=== PATIENT | male | born 1945 | race Caucasian/White ===

== ENCOUNTER 2021-09-22 10:33 | Observation (INO) | payer MEDICARE, OTHER ==
[2021-09-22] MEDS ORDERED: Ondansetron ODT 4 MG TAB PO PRN (11:29)
[2021-09-22] MEDS ORDERED: Acetaminophen 325 MG TAB PO PRN (11:29)
[2021-09-22] MEDS ORDERED: Senokot S 8.6-50 MG TAB PO PRN (11:29)
[2021-09-22 11:39] VITALS: BMI 31.2
[2021-09-22] MEDS ORDERED: Acetaminophen 325 MG TAB PO SCH (11:45)
[2021-09-22] MEDS ORDERED: Nitroglycerin 2% Ointment 1 INCH/1 GM Packet TOP SCH ×2 (11:45→21:00)
[2021-09-22] MEDS ORDERED: Nitroglycerin 2% Ointment 1 INCH/1 GM Packet ONE (11:55)
[2021-09-22] MEDS ORDERED: Acetaminophen 500 MG TAB ONE (11:55)
[2021-09-22 12:00] LABS: #Eosinphils 0.1 10x3/uL (0.0-0.5); #Monocytes 0.7 10x3/uL (0.0-1.1); #Neutrophils 5.9 10x3/uL (1.5-8.4); %Basophils 0.5 % (0.0-2.0); %Eosinophils 1.7 % (0.0-6.0); %Lymphocytes 13.7 % (18.0-47.0); %Monocytes 9.2 % (0.0-10.0); %Neutrophils 74.6 % (40.0-75.0); Hemoglobin 14.3 g/dL (13.5-17.5); Mean Corpuscular Hemoglobin 32.2 pg (27.0-33.0); Mean Corpuscular Volume 94.8 fl (81.2-95.1); Mean Platelet Volume 11.3 fl (7.4-10.4); Platelet Count 136 10x3/uL (150-450); RBC Distribution Width 13.5 % (11.5-14.5); Red Blood Cell (RBC) Count 4.44 10x6/uL (4.32-5.72); White Blood Cell (WBC) Count 7.9 10x3/uL (3.5-10.5)
[2021-09-22 12:03] LABS: Anion Gap 10 mmol/L (10-20); BUN (Urea Nitrogen) 12 mg/dL (8.4-25.7); Calc. Creatinine Clearance 150 mL/min (70-130); Calcium 9.1 mg/dL (7.8-10.44); Carbon Dioxide 27 mmol/L (23-31); Chloride 107 mmol/L (98-107); Glucose 115 mg/dL (83-110); Magnesium 1.8 mg/dL (1.6-2.6); Potassium 4.4 mmol/L (3.5-5.1); Sodium 140 mmol/L (136-145)
[2021-09-22] MEDS ORDERED: hydrALAZINE 20 MG/ML VIAL SLOW IVP PRN (12:04)
[2021-09-22] MEDS ORDERED: Clopidogrel Bisulfate 75 MG TAB PO SCH (14:00)
[2021-09-22] MEDS ORDERED: Apixaban 5 MG TAB PO SCH (14:00)
[2021-09-22] MEDS ORDERED: Apixaban 5 MG TAB ONE (15:27)
[2021-09-22] MEDS ORDERED: Clopidogrel Bisulfate 75 MG TAB ONE (15:27)
[2021-09-22] MEDS ORDERED: Losartan Potassium 50 MG TAB PO SCH (18:15)
[2021-09-22] MEDS: Losartan Potassium 50 MG TAB PO SCH ×2 (18:31→20:12)
[2021-09-22] MEDS: Apixaban 5 MG TAB PO SCH (21:19)
[2021-09-23 04:07] LABS: #Basophils 0.1 10x3/uL (0.0-0.2); #Eosinphils 0.3 10x3/uL (0.0-0.5); #Monocytes 0.9 10x3/uL (0.0-1.1); #Neutrophils 4.6 10x3/uL (1.5-8.4); %Basophils 0.7 % (0.0-2.0); %Eosinophils 3.5 % (0.0-6.0); %Lymphocytes 23.3 % (18.0-47.0); %Monocytes 11.5 % (0.0-10.0); %Neutrophils 60.7 % (40.0-75.0); Hemoglobin 14.5 g/dL (13.5-17.5); Mean Corpuscular Hemoglobin 31.5 pg (27.0-33.0); Mean Corpuscular Volume 95.4 fl (81.2-95.1); Mean Platelet Volume 11.2 fl (7.4-10.4); Platelet Count 141 10x3/uL (150-450); RBC Distribution Width 13.5 % (11.5-14.5); White Blood Cell (WBC) Count 7.5 10x3/uL (3.5-10.5)
[2021-09-23 04:23] LABS: Anion Gap 11 mmol/L (10-20); BUN (Urea Nitrogen) 9 mg/dL (8.4-25.7); Calc. Creatinine Clearance 139 mL/min (70-130); Calcium 8.8 mg/dL (7.8-10.44); Carbon Dioxide 27 mmol/L (23-31); Cardiac Risk 2.4 (Less than 4.5); Chloride 106 mmol/L (98-107); Cholesterol 110 mg/dl (< 200 Desired); Glucose 99 mg/dL (83-110); HDL Cholesterol 46 mg/dL (>60 Neg Risk); LDL Cholesterol, Calculated 54 mg/dL; Sodium 140 mmol/L (136-145); Triglycerides 50 mg/dL (Less than 150)
[2021-09-23] MEDS: Apixaban 5 MG TAB PO SCH (08:33)
[2021-09-23] MEDS ORDERED: Losartan Potassium 50 MG TAB PO SCH (09:00)
[2021-09-23] MEDS ORDERED: Atorvastatin Calcium 40 MG TAB PO SCH (09:00)
[2021-09-23] MEDS ORDERED: Clopidogrel Bisulfate 75 MG TAB PO SCH (09:00)
[2021-09-23] MEDS ORDERED: Allopurinol 300 MG TAB PO SCH (09:00)
[2021-09-23] MEDS ORDERED: Amlodipine 5 MG TAB PO SCH (09:00)
[2021-09-23 18:16] VITALS: BP 158/88; TEMP 97.6
== END 2021-09-23 18:56 | disposition home or self-care (01) ==
LOC: UNDOADMOB 10:33 → CSHERHOLD 10:33 → INTOOBSV 10:33 → CSHERHOLD 11:34 → OBSVTOIN 11:34 → CSHTELE 15:59
PROVIDERS: ADMIT Family Medicine; ATTEND Nurse Practitioner Family
DX: I25.110 Atherosclerotic heart disease of native coronary artery with unstable angina pectoris (principal); I16.0 Hypertensive urgency; R00.1 Bradycardia, unspecified; M10.9 Gout, unspecified; Z87.442 Personal history of urinary calculi; Z79.01 Long term (current) use of anticoagulants; Z79.02 Long term (current) use of antithrombotics/antiplatelets; Z95.5 Presence of coronary angioplasty implant and graft; Z79.899 Other long term (current) drug therapy; I48.20 Chronic atrial fibrillation, unspecified; E78.2 Mixed hyperlipidemia
CPT/HCPCS: 80048 ×2; 80061; 83735; 85025 ×2; 93005; 96374; G0378 ×3; J3475; 36415; 93010

== ENCOUNTER 2024-05-27 16:09 | Emergency (ER) | payer MEDICARE, OTHER ==
[2024-05-27 17:22] LABS: #Basophils 0.03 10x3/uL (0.0-0.2); #Eosinphils 0.14 10x3/uL (0.0-0.5); #Monocytes 0.63 10x3/uL (0.0-1.1); %Basophils 0.6 % (0.0-2.0); %Eosinophils 2.6 % (0.0-6.0); %Lymphocytes 21.7 % (18.0-47.0); %Monocytes 11.7 % (0.0-10.0); Hematocrit 39.3 % (38.8-50.0); Hemoglobin 13.6 g/dL (13.5-17.5); Mean Corpuscular HGB CONC 34.6 g/dL (32.0-36.0); Mean Corpuscular Hemoglobin 33.3 pg (27.0-33.0); Mean Corpuscular Volume 96.3 fL (81.2-95.1); Mean Platelet Volume 10.9 fL (7.4-10.4); Platelet Count 134 10x3/uL (150-450); RBC Distribution Width 13.3 % (11.5-14.5); Red Blood Cell (RBC) Count 4.08 10x6/uL (4.32-5.72); White Blood Cell (WBC) Count 5.3 10x3/uL (3.5-10.5)
[2024-05-27 17:41] LABS: ALT (SGPT) 78 U/L (8-55); AST (SGOT) 62 U/L (5-34); Albumin 3.2 g/dL (3.4-4.8); Alkaline Phosphatase 108 U/L (40-110); Anion Gap 13 mmol/L (10-20); BUN (Urea Nitrogen) 15 mg/dL (8.4-25.7); Bilirubin, Total 0.7 mg/dL (0.2-1.2); Calc. Creatinine Clearance 0 mL/min (70-130); Calcium 8.6 mg/dL (7.8-10.44); Carbon Dioxide 23 mmol/L (23-31); Chloride 110 mmol/L (98-107); Estimated GFR 87; Globulin 2.6 g/dL (2.4-3.5); Glucose 128 mg/dL (83-110); Potassium 3.9 mmol/L (3.5-5.1); Protein, Total 5.8 g/dL (5.8-8.1); Sodium 142 mmol/L (136-145)
[2024-05-27 17:48] LABS: Critical Call Chem Troponin I ERS.JM3 at 1747; Troponin I 0.226 ng/mL (< 0.028)
[2024-05-27 17:55] LABS: Bilirubin Neg (Negative); Blood, Urine 25 (Negative); Clarity Clear (Clear); Glucose, Urine (Dipstick) Normal (Negative); Ketone, Urine Negative (Negative); Leukocyte Negative (Negative); Nitrite Negative (Negative); Protein, Urine (Dipstick) 30 mg/dl (Neg-Trace); Specific Gravity, Urine 1.025 (1.005-1.030)
[2024-05-27 18:05] LABS: Bacteria/HPF None Seen HPF (None Seen); CAUTI Indications for Culture Dysuria,urgency,freq; Mucous/LPF 2+ LPF (<2+); Squamous Epithelial 0-3 HPF (0-3); WBC/HPF 0-3 HPF (0-3)
[2024-05-27 18:06] LABS: Urine Culture Reflex No No
== END 2024-05-27 20:15 | disposition home or self-care (01) ==
LOC: CSHERS 16:09
DX: R39.198 Other difficulties with micturition (principal); I11.0 Hypertensive heart disease with heart failure; I50.9 Heart failure, unspecified; E78.5 Hyperlipidemia, unspecified; Z79.899 Other long term (current) drug therapy; Z79.01 Long term (current) use of anticoagulants
CPT/HCPCS: 74176; 80053; 81001; 84484; 85025; 93005